=== PATIENT | male | born 1950 | race Caucasian/White ===

== ENCOUNTER 2020-11-01 08:06 | Day surgery (SDCO) | payer MEDICARE, OTHER ==
[2020-11-01 08:26] LABS: BASOPHIL 0.7 % (0-2); HGB 14.1 g/dl (13.2-18.0); LYMPHOCYTE 29.1 % (15-48); MCH 26.5 pg (25.0-31.0); MCHC 30.7 g/dL (32.0-36.0); MCV 86.3 fL (78.0-100.0); MONOCYTE 5.2 % (0-12); MPV 9.8 fL (6.0-9.5); NEUTROPHIL 63.6 % (41-80); NRBC 0; PLT 184 K/uL (150-400); RBC 5.33 M/uL (4.70-6.00); RDW 16.4 % (11.5-14.0); WBC 7.1 K/uL (4.0-10.5)
[2020-11-01 08:41] LABS: INR 1.09 (0.9-1.2); PROTHROMBIN TIME 13.4 SECONDS (11.4-13.6); PTT 35.4 SECONDS (22.2-34.7)
[2020-11-01 08:43] LABS: D-DIMER 1.77 ug/mLFEU (0.00-0.41)
[2020-11-01 08:49] LABS: LACTIC ACID 1.3 mmol/L (0.4-1.9)
[2020-11-01 08:59] LABS: CKMB 0.9 ng/mL (0.0-3.6)
[2020-11-01 09:13] LABS: ALBUMIN 2.5 g/dL (3.4-5.0); BILIRUBIN - TOTAL 0.8 mg/dL (0.2-1.0); BUN/CREAT RATIO (CALC) 14.3 RATIO; CREATININE 0.98 mg/dL (0.67-1.17); GLOBULIN (CALCULATION) 4.8 g/dL; POTASSIUM 4.6 mmol/L (3.5-5.1); TOTAL PROTEIN 7.3 g/dL (6.4-8.2)
[2020-11-02 03:57] LABS: BASOPHIL 0.7 % (0-2); HCT 42.5 % (42.0-52.0); HGB 13.3 g/dl (13.2-18.0); LYMPHOCYTE 27.6 % (15-48); MCH 26.5 pg (25.0-31.0); MCHC 31.3 g/dL (32.0-36.0); MCV 84.7 fL (78.0-100.0); MONOCYTE 4.3 % (0-12); MPV 9.8 fL (6.0-9.5); NEUTROPHIL 66.1 % (41-80); NRBC 0; PLT 196 K/uL (150-400); RBC 5.02 M/uL (4.70-6.00); RDW 16.2 % (11.5-14.0); WBC 6.9 K/uL (4.0-10.5)
[2020-11-02 04:20] LABS: CHOLESTEROL 99 mg/dL (<200); HDL 32 mg/dL (40-60); LDL - DIRECT 45 mg/dL (<100); TRIGLYCERIDES 153 mg/dL (<150)
[2020-11-02] MEDS ORDERED: IMDUR 30MG TABL30 MG PO (09:31)
[2020-11-02] MEDS ORDERED: ATROVENT HFA12.9 GM INH (09:31)
[2020-11-02] MEDS ORDERED: LOPRESSOR25 MG PO (09:31)
[2020-11-02] MEDS ORDERED: ASPIRIN EC81 MG PO (09:31)
[2020-11-02] MEDS ORDERED: VENTOLIN HFA IN18 GM INH (09:31)
--- NOTE | 2020-11-02 12:53 | NUR ---
11/02/20 Mr. Mcgrath is from [facility]. Malia Jain reports that [facility] will accept patient back. Mr. Mcgrath's speech is difficult to understand. He states he does not wish to return to [facility]. He wishes to get an apartment. Mr. Mcgrath gave permission for this social media assistant to speak with his friend / "person to contact" Nhi Rivera. Nhi Rivera, , report that Mr. Mcgrath has been at [facility] for 2 years. She is not able to care for him at home nor is any of his family able to care for him due to their age. - Dr. Morgan spoke with patient and he voiced understanding and acknowledged the need to return to [facility]. - Radha Mcdonald, social media assistant at [facility], reports to be working with the [facility] in efforts to get Mr. Mcgrath into an apartment. The program works with the patient to demonstrate abilities; transffers, medication administration, managing incontinence. - Report given to Dr. Morgan.
== END 2020-11-02 15:16 ==
LOC: FER 08:06 → FTCU 11:04
PROVIDERS: Emergency Medicine; ADMIT Allergy & Immunology Allergy
DX: R07.2 Precordial pain (principal); I45.10 Unspecified right bundle-branch block; I25.10 Atherosclerotic heart disease of native coronary artery without angina pectoris; I10 Essential (primary) hypertension; R13.10 Dysphagia, unspecified; E78.5 Hyperlipidemia, unspecified; Z79.51 Long term (current) use of inhaled steroids; Z86.73 Personal history of transient ischemic attack (TIA), and cerebral infarction without residual deficits; Z86.16 Personal history of COVID-19
CPT/HCPCS: 36415; 71045; 71275; 80053; 80061; 82553; 82962; 83036; 83605; 83874; 83880; 84484; 85025; 85379; 85610; 85730; 86140; 87040; 93005; 97166; 97530; 97535; G0378; J1650; J1956; Q9967

== ENCOUNTER 2021-05-03 19:50 | Emergency (ER) | payer MEDICARE, OTHER ==
[~2021-05-03 19:50] MED LIST: ASPIRIN EC81 MG PO; ATROVENT HFA12.9 GM INH; IMDUR 30MG TABL30 MG PO; LOPRESSOR25 MG PO; VENTOLIN HFA IN18 GM INH
[2021-05-03 20:33] LABS: BASOPHIL 0.7 % (0-2); EOSINOPHIL 0.6 % (0-7); HCT 46.1 % (42.0-52.0); HGB 14.2 g/dl (13.2-18.0); LYMPHOCYTE 30.1 % (15-48); MCH 24.6 pg (25.0-31.0); MCHC 30.8 g/dL (32.0-36.0); MCV 79.9 fL (78.0-100.0); MONOCYTE 4.9 % (0-12); MPV 11.1 fL (6.0-9.5); NEUTROPHIL 63.2 % (41-80); NRBC 0; PLT 217 K/uL (150-400); RBC 5.77 M/uL (4.70-6.00); RDW 17.4 % (11.5-14.0)
[2021-05-03 20:58] LABS: ALBUMIN 3.6 g/dL (3.4-5.0); BILIRUBIN - TOTAL 0.7 mg/dL (0.2-1.0); BUN/CREAT RATIO (CALC) 30.3 RATIO; CREATININE 1.42 mg/dL (0.67-1.17); GLOBULIN (CALCULATION) 4.1 g/dL; POTASSIUM 4.9 mmol/L (3.5-5.1); TOTAL PROTEIN 7.7 g/dL (6.4-8.2)
== END 2021-05-04 03:00 | disposition other institution (70) ==
LOC: FER 19:50
PROVIDERS: Emergency Medicine
DX: R00.1 Bradycardia, unspecified (principal); F03.90 Unspecified dementia, unspecified severity, without behavioral disturbance, psychotic disturbance, mood disturbance, and anxiety; I10 Essential (primary) hypertension; E78.5 Hyperlipidemia, unspecified; E11.9 Type 2 diabetes mellitus without complications; Z79.82 Long term (current) use of aspirin; Z79.899 Other long term (current) drug therapy; Z20.822 Contact with and (suspected) exposure to COVID-19
CPT/HCPCS: 36415; 71045; 80053; 83880; 84443; 84484; 85025; 93005; J7030; U0002

== ENCOUNTER 2022-04-18 17:34 | Emergency (ER) | payer MEDICARE, OTHER ==
[2022-04-18 18:14] LABS: BASOPHIL 0.6 % (0-2); EOSINOPHIL 0.7 % (0-7); HCT 41.8 % (42.0-52.0); HGB 13.3 g/dl (13.2-18.0); LYMPHOCYTE 27.6 % (15-48); MCHC 31.8 g/dL (32.0-36.0); MCV 78.7 fL (78.0-100.0); MONOCYTE 6.3 % (0-12); NEUTROPHIL 64.6 % (41-80); NRBC 0; PLT 204 K/uL (150-400); RBC 5.31 M/uL (4.70-6.00); RDW 15.9 % (11.5-14.0)
[2022-04-18 18:48] LABS: ALBUMIN 2.4 g/dL (3.4-5.0); ALKALINE PHOSHATASE 58 U/L (46-116); ALT <6 U/L (16-63); AST 9 U/L (15-37); BILIRUBIN - TOTAL 0.5 mg/dL (0.2-1.0); BUN 14 mg/dL (7-18); BUN/CREAT RATIO (CALC) 10.6 RATIO; CHLORIDE 101 mmol/L (98-107); CO2 (BICARBONATE) 34 mmol/L (21-32); CREATININE 1.32 mg/dL (0.67-1.17); GLUCOSE 117 mg/dL (74-106); POTASSIUM 2.7 mmol/L (3.5-5.1); TOTAL PROTEIN 7.4 g/dL (6.4-8.2)
[2022-04-18 23:10] LABS: BILIRUBIN NEGATIVE (NEGATIVE); BLOOD 3+ Ery/uL (NEGATIVE); COLOR YELLOW (YELLOW); GLUCOSE (U) NORMAL (NORMAL); LEUKOCYTES 2+ Leu/uL (NEGATIVE); NITRITE NEGATIVE (NEGATIVE); PROTEIN 1+ mg/dL (NEGATIVE); UROBILINOGEN 0.2 mg/dL (0.2-1.0)
[2022-04-18 23:20] LABS: URINARY WBC TNTC
[2022-04-18 23:21] LABS: BACTERIA 4+; CLARITY CLOUDY (CLEAR)
== END 2022-04-19 02:15 | disposition other institution (70) ==
LOC: FER 17:34
PROVIDERS: Emergency Medicine
DX: N13.6 Pyonephrosis (principal); K62.89 Other specified diseases of anus and rectum; E11.9 Type 2 diabetes mellitus without complications; J44.9 Chronic obstructive pulmonary disease, unspecified; F03.90 Unspecified dementia, unspecified severity, without behavioral disturbance, psychotic disturbance, mood disturbance, and anxiety
CPT/HCPCS: 36415; 71045; 80053; 81001; 83605; 83880; 84145; 85025; 87088; J0696; J3475; J3480; J7030; J7050; Q9967